=== PATIENT | male | born 1990 | race American Indian/Alaskan Native ===

== ENCOUNTER 2019-09-16 19:47 | Emergency (ER) | payer SELFPAY ==
[2019-09-16 20:55] VITALS: BP 120/67
[2019-09-16] MEDS ORDERED: TETANUS,DIPH,PERTUSS(ACELL) VACCINE 0.5 ML SYRINGE IM ONE (22:03)
--- NOTE | 2019-09-16 22:07 | Emergency Department Report ---
ED Laceration HPI - HPI Chief Complaint: Laceration/Recheck/Suture Stated Complaint: RT HAND INJURY Time Seen by Provider: 09/16/19 21:54 Location: Upper Extremity Severity: mild Tetanus Status: Not up to Date Laceration Symptoms: Yes Numbness, Yes Pain, No Foreign Body Sensation, No Weakness Other History: This pleasant 29-year-old male presents the emergency department with a chief complaint of a laceration to his right third digit. Patient reports he was cutting food yesterday and excellently cut his finger. He is unsure of his last tetanus shot. He reports pain with movement. He denies any other injuries. He denies any known past medical history, current medication use or known allergies to medications. Associated fever, chills, night sweats, headache, dizziness, blurry vision, nausea, vomiting, diarrhea, chest pain, shortness of breath or any other associated symptoms. ED Review of Systems ROS: Stated complaint: RT HAND INJURY Other details as noted in HPI Comment: All other systems reviewed and negative Constitutional: denies: chills, fever Eyes: denies: eye pain, eye discharge, vision change ENT: denies: ear pain, throat pain Respiratory: denies: cough, shortness of breath, wheezing Cardiovascular: denies: chest pain, palpitations Endocrine: no symptoms reported Gastrointestinal: denies: abdominal pain, nausea, diarrhea Genitourinary: denies: urgency, dysuria Musculoskeletal: denies: back pain, joint swelling, arthralgia Skin: as per HPI, other (Wound). denies: rash, lesions Neurological: denies: headache, weakness, paresthesias Psychiatric: denies: anxiety, depression Hematological/Lymphatic: denies: easy bleeding, easy bruising ED Past Medical Hx - Past Medical History Previous Medical History?: No - Surgical History Past Surgical History?: Yes Additional Surgical History: Hernia Surgery - Social History Smoking Status: Never Smoker - Medications Home Medications: Home Medications Medication Instructions Recorded Confirmed Last Taken Type cephALEXin [Keflex] 500 mg PO Q6HR #40 capsule 09/16/19 Unknown Rx traMADoL [Ultram 50 MG tab] 50 mg PO Q6HR PRN #12 tablet 09/16/19 Unknown Rx Laceration Physical Exam - Exam General: Vital signs noted. No distress. Alert and acting appropriately. There is a 2 cm flap laceration between the DIP and PIP joint of the right third digit on the palmar side. There is full flexion and extension at the DIP PIP and MCP joint. There is normal distal capillary refill but mildly decreased sensation. There is no erythema or ecchymosis. There is no flexor posturing, pain along the flexor tendon, circumferential swelling Wound Length (cm): 2 Laceration Exam: Yes Normal Distal CMS, No Foreign Body, No Exposed Tendon, Vessel, or Nerve, No Tendon Injury ED Course Vital Signs 09/16/19 20:49 Temperature 98.6 F Pulse Rate 77 Respiratory 18 Rate Blood Pressure 120/67 O2 Sat by Pulse 99 Oximetry ED Medical Decision Making - Medical Decision Making The patient's laceration was unfortunately too old to close with sutures. We will start him on Keflex to avoid infection. His knavel criteria is negative and there are no evidence of flexor tenosynovitis on exam however the patient was educated about the signs and symptoms and when to return to the emergency department. His tetanus was updated in the emergency department. Recommend he return the emerge department if he develops any changing worsening symptoms. No obvious evidence of a tendon injury but is a possibility of an injury to a nerve due to the mild numbness in the tip of his finger. Will refer to orthopedics. He verbalized understanding the diagnosis, treatment plan and follow-up instructions and all of his questions were answered. - Differential Diagnosis Laceration, abrasion, burn Critical care attestation.: If time is entered above; I have spent that time in minutes in the direct care of this critically ill patient, excluding procedure time. ED Disposition Clinical Impression: Finger laceration Qualifiers: Encounter type: initial encounter Finger: middle finger Damage to nail status: without damage Foreign body presence: without foreign body Laterality: right Qualified Code(s): S61.212A - Laceration without foreign body of right middle finger without damage to nail, initial encounter Disposition: - TO HOME OR SELFCARE Is pt being admited?: No Condition: Stable Instructions: Finger Laceration (ED) Prescriptions: cephALEXin [Keflex] 500 mg PO Q6HR #40 capsule traMADoL [Ultram 50 MG tab] 50 mg PO Q6HR PRN #12 tablet PRN Reason: Pain Referrals: VILMA SAM MD [Staff Physician] - 3-5 Days [facility] [Provider Group] - 3-5 Days Time of Disposition: 22:08
== END 2019-09-16 23:05 | disposition home or self-care (01) ==
LOC: ED 19:47
DX: S61.212A Laceration without foreign body of right middle finger without damage to nail, initial encounter (principal); Z98.890 Other specified postprocedural states; X58.XXXA Exposure to other specified factors, initial encounter; Y93.89 Activity, other specified; Y92.89 Other specified places as the place of occurrence of the external cause; Y99.8 Other external cause status
CPT/HCPCS: 90471; 90715; 99281

== ENCOUNTER 2021-07-29 09:33 | Emergency (ER) | payer SELFPAY ==
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
[2021-07-29 12:21] VITALS: BP 118/72
== END 2021-07-29 12:40 | disposition home or self-care (01) ==
LOC: ED 09:33
DX: R10.33 Periumbilical pain (principal); F39 Unspecified mood [affective] disorder; Z79.899 Other long term (current) drug therapy
CPT/HCPCS: 99282